=== PATIENT | female | born 1975 | race Caucasian/White ===

== ENCOUNTER → 2017-02-25 | Outpatient (CLI) | payer BC ==
--- NOTE | 2017-02-25 17:27 | RAD ---
DATE: 02/25/2017 EXAM: MAMMO TRICIA SCREENING BILATERAL HISTORY: Screening mammogram COMPARISON: October 14, 2013 bilateral mastoid mammogram. The breast parenchyma is heterogeneously dense, which could reduce sensitivity of mammography. Breast parenchyma level C. FINDINGS: Bilateral digital 2D and 3D tomosynthesis CC and MLO views. No suspicious mass, calcification or architectural distortion in either breast. IMPRESSION: No mammographic evidence to suggest malignancy. BI-RADS 1, negative. Recommend routine screening mammogram in 12 months. BI-RADS CATEGORY: 1 NEGATIVE RECOMMENDED FOLLOW-UP: 12M 12 MONTH FOLLOW-UP PQRS compliance statement: Patient information was entered into a reminder system with a target due date February 2018 for the next mammogram. Mammography is a sensitive method for finding small breast cancers, but it does not detect them all and is not a substitute for careful clinical examination. A negative mammogram does not negate a clinically suspicious finding and should not result in delay in biopsying a clinically suspicious abnormality. "Our facility is accredited by the [employer] Mammography [employer]."
== END | disposition home or self-care (01) ==
LOC: KCIC MAMMO 08:52
PROVIDERS: ATTEND Nurse Practitioner Family
DX: Z12.31 Encounter for screening mammogram for malignant neoplasm of breast (principal)
CPT/HCPCS: 77063; G0202; 77067

== ENCOUNTER → 2018-04-14 | Outpatient (CLI) | payer BC ==
--- NOTE | 2018-04-14 14:22 | KCIC ---
Bilateral digital screening mammograms with 3-D tomosynthesis: Reason for examination: Routine screening. Comparison is made to previous studies dated 02/25/2017 and 10/14/2013. Bilateral mammograms in CC and oblique projections were obtained with 2-D imaging and 3-D tomosynthesis imaging on a Siemens Inspiration unit and reviewed on the workstation. Interpretation was made with the benefit of CAD. The skin and nipples show no abnormalities. No abnormal axillary lymph nodes are seen. The breast parenchyma is heterogeneously dense. (Breast density: Category C.) There are circumscribed lesions seen bilaterally which likely represent cysts. This can be further evaluated with ultrasound. There are no suspicious calcifications or architectural distortion. Impression: Circumscribed lesions bilaterally. Recommend further evaluation with ultrasound. Your patient's mammogram demonstrates that she has dense breast tissue (breast density category C or D), which could hide abnormalities, and if she has other risk factors for breast cancer that have been identified, she might benefit from supplemental screening tests that may be suggested by you as her ordering physician. Dense breast tissue, in and of itself, is a relatively common condition. Therefore, this information is not provided to cause undue concern, but rather to raise your awareness and to promote discussion with your patient regarding the presence of other risk factors, in addition to dense breast tissue. Your patient's mammography results will be sent to her. BI-RAD Category 0: Incomplete. Needs additional imaging evaluation. "Our facility is accredited by the [employer] Mammography [employer]." This patient's information has been entered into a reminder system for the patient to be notified with the results of her examination and a target date for the next mammogram. Electronically signed by: Rupinder Williamson MD (04/14/2018 2:19 PM) [facility]
== END | disposition home or self-care (01) ==
LOC: KCIC MAMMO 10:00
PROVIDERS: ATTEND Nurse Practitioner Family
DX: Z12.31 Encounter for screening mammogram for malignant neoplasm of breast (principal); N64.89 Other specified disorders of breast
CPT/HCPCS: 77063; 77067

== ENCOUNTER → 2018-04-20 | Outpatient (CLI) | payer BC ==
--- NOTE | 2018-04-20 13:07 | KCIC ---
Bilateral breast ultrasound: Reason for examination: Nodular densities on screening mammogram. Comparison is made to mammographic exam dated 04/14/2018. Bilateral whole breast ultrasound including evaluation of all 4 quadrants and the retroareolar and axillary regions of both breasts was performed. The right breast shows presence of a 1.3 x 1.2 cm fibrocystic lesion at the 10:00 position 5 cm from the nipple. There is a 5.7 x 9.9 mm fibrocystic type lesion at the 10:00 position 2 cm from the nipple. There is a 4.8 x 5.9 mm fibrocystic lesion at the 10:00 position 3 cm from the nipple. No other cystic or solid lesions are seen. No abnormal appearing lymph nodes are seen in the right axilla. The left breast shows a 1.7 x 1.3 cm simple cyst at the 12:00 position 3.5 cm from the nipple. There is a 1.1 x 0.9 cm cyst in the 2:00 position 6 cm from the nipple. There is a 1.6 cm patch of fibrocystic change in the 3:30 position 4.5 cm from the nipple. There is a 1.1 cm hypoechoic fibrocystic type lesion in the 9:30 position 3.5 cm from the nipple. There is a 6.7 mm hypoechoic fibrocystic lesion at the 10:00 position 4 cm from the nipple. No suspicious appearing nodules are seen. No abnormal appearing lymph nodes are seen in left axilla. IMPRESSION: Benign-appearing cystic and fibrocystic type lesions are seen bilaterally. No gross suspicious lesions are seen. Recommend however reevaluation with ultrasound in 3 months. BI-RADS Category 3: Probably Benign. This patient's information has been entered into a reminder system for the patient to be notified with the results of her examination and a target date for the next mammogram. Electronically signed by: Rupinder Williamson MD (04/20/2018 1:04 PM) [facility]
== END | disposition home or self-care (01) ==
LOC: KCIC US 08:03
PROVIDERS: ATTEND Nurse Practitioner Family
DX: N63.11 Unspecified lump in the right breast, upper outer quadrant (principal); N63.21 Unspecified lump in the left breast, upper outer quadrant
CPT/HCPCS: 76641

== ENCOUNTER → 2018-07-21 | Outpatient (CLI) | payer BC ==
--- NOTE | 2018-07-21 09:48 | KCIC ---
Bilateral breast ultrasound: Reason for examination: Follow-up nodules. Comparison is made to previous study dated 04/20/2018. Bilateral whole breast ultrasound including evaluation of all 4 quadrants and the retroareolar and axillary regions of both breasts was performed. The right breast continues to show multiple small cystic and fibrocystic lesions. The fibrocystic lesion at the 10:00 position 2 cm from the nipple continue show some echogenic flecks which may reflect some calcifications but no calcifications are seen mammographically. The lesion however has decreased in size now measuring 6.7 mm in greatest dimension. The remaining cystic and fibrocystic lesions also show decrease in size. No abnormal appearing lymph nodes are seen in the axilla. The left breast also continues to show a 1.8 cm cyst at the 12:00 position 3.5 cm from the nipple and a 9.3 mm cyst at the 2:00 position 6 cm from the nipple. There also continue to be additional small cystic and fibrocystic lesions which are subcentimeter in size. No suspicious lesions are seen. No abnormal appearing lymph nodes are seen in the axilla. IMPRESSION: Continued presence of benign-appearing cystic and fibrocystic lesions bilaterally. Lesion in the right breast at the 10:00 position 2 cm from the nipple shows echogenic flecks suggesting calcifications. The overall size of the lesion however has decreased. Recommend continued 6 month follow-up. BI-RADS Category 3: Probably Benign. "Our facility is accredited by the [employer] Mammography Program." This patient's information has been entered into a reminder system for the patient to be notified with the results of her examination and a target date for the next mammogram. Electronically signed by: Rupinder Williamson MD (07/21/2018 9:44 AM) [place] [id number]
== END | disposition home or self-care (01) ==
LOC: KCIC US 07:47
PROVIDERS: ATTEND Nurse Practitioner Family
DX: R92.8 Other abnormal and inconclusive findings on diagnostic imaging of breast (principal); N63.11 Unspecified lump in the right breast, upper outer quadrant
CPT/HCPCS: 76641

== ENCOUNTER → 2019-01-19 | Outpatient (CLI) | payer BC ==
--- NOTE | 2019-01-19 09:11 | KCIC ---
Bilateral breast ultrasound: Reason for examination: Follow-up nodules. Comparison is made to previous studies dated 07/21/2018 and 04/20/2018. Ultrasound examination was performed bilaterally with attention to the areas of previous concern and the axilla. In the right breast, there has been resolution of the fibrocystic lesion at the 10:00 position 5 cm from the nipple. There continues to be a small 3.9 mm hypoechoic fibrocystic lesion at the 10:00 position 3 cm from the nipple which has decreased in size. There is continued presence however of a 5.4 mm hypoechoic lesion with echogenic flecks consistent with calcifications at the 10:00 position 2 cm from the nipple. This appears to show some irregularity to the margins and some vascularity. Further evaluation with ultrasound-guided biopsy is recommended. No abnormal appearing lymph nodes are seen in the axilla. In the left breast, there continues to be a 1.9 cm cystic lesion present at the 12:00 position 3.5 cm from the nipple. There continues to be a 1.1 cm cystic lesion at the 2:00 position 6 cm from the nipple which is unchanged. There is improvement in the fibrocystic lesion at the 3:00 B position 4.5 cm from the nipple. There continues to be a 8.7 mm hypoechoic lesion at the 9:30 position 3.5 cm from the nipple which shows a decrease in overall size. There continues to be a small lesion at the 10:00 position 4 cm from the nipple measuring 8.2 mm in size which shows an overall decrease in size from the original ultrasound exam. No new suspicious lesions are seen. No abnormal appearing lymph nodes are seen in the axilla. IMPRESSION: Continued presence of cystic and fibrocystic lesions bilaterally which show interval improvement. 5.4 mm hypoechoic lesion in the right breast at the 10:00 position 2 cm from the nipple which shows some irregularity to the margins and contains echogenic flecks consistent with calcifications . Further evaluation with ultrasound-guided biopsy is recommended. BI-RADS Category 4: Suspicious. These findings have been discussed with the patient and the patient's nurse practitioner was notified about these findings at 9:03 AM on 01/19/2019.. "Our facility is accredited by the [employer] Mammography Program." This patient's information has been entered into a reminder system for the patient to be notified with the results of her examination and a target date for the next mammogram. Electronically signed by: Rupinder Williamson MD (01/19/2019 9:08 AM) [facility]
== END | disposition home or self-care (01) ==
LOC: KCIC US 07:47
PROVIDERS: ATTEND Nurse Practitioner Family
DX: N64.89 Other specified disorders of breast (principal)
CPT/HCPCS: 76641

== ENCOUNTER → 2019-02-04 | Outpatient (CLI) | payer BC ==
--- NOTE | 2019-02-04 16:34 | RAD ---
Examination: DIGITAL DIAGNOSTIC RT, US GUID NDL PLACE/ASPI/BX History: Right breast mass 10:00 mass Comparison/Correlation: 01/19/2019 bilateral breast ultrasound exam Findings: Risks and benefits of ultrasound-guided core biopsy were discussed with patient and informed consent was obtained. Lateral approach was utilized. ChloraPrep was utilized for cleansing of the right breast. Sterile drapes were placed. Sterile gel and sterile probe cover were utilized. A total of 4.5 cc 1 percent lidocaine was administered under ultrasound guidance along the expected course of the needle track and medial to the mass of interest. Scalpel incision was made. An introducer was placed. A 14-gauge core biopsy needle was then placed into the mass. 4 passes were made with the bevel open. Specimens were placed in a formalin jar. Clip marker was then placed via the introducer into the right breast 10:00 mass. Patient tolerated the procedure well without immediate complications. Right MLO and CC images were then obtained for clip marker placement assessment. Clip marker is in place within the mass of interest at the upper outer aspect near the nipple. Impression: Successful biopsy of the right upper outer breast mass. Electronically signed by: Bradley Briones MD (02/04/2019 4:31 PM) [facility]
--- NOTE | 2019-02-09 16:06 | PATHOLOGY ---
[facility] Accession Number: [id number] . 01 Material submitted: . breast - RIGHT BREAST, 10:00, 2CMFN. Modifiers: right, 10:00 . 01 Clinical history: . Right breast mass 10:00 2 cmFN . 02 Diagnosis: Breast tissue, right breast mass 10:00 needle biopsies: - Sclerosing adenosis. - Fibrocystic changes with the following components: - Stromal fibrosis. - Duct ectasia. - Cystic change. - Apocrine metaplasia. - Chronic inflammation. (JPM:pit 02/08/2019) P/02/08/2019 . 02 Comment: Sections of the right breast mass at 10:00 needle biopsies show fibrocystic changes. There are foci of stromal fibrosis, duct ectasia, cystic change, apocrine metaplasia and chronic inflammation. In addition, there are crowded haphazardly arranged tubular structures infiltrating a fibrous stroma which on low power appear to maintain a lobular orientation. Immunoperoxidase stains for myoepithelial cells are obtained on A1 and A2 and yield the following results: . P63 (A1): Myoepithelial cells present within crowded tubular structures. Smooth muscle myosin heavy chain (A1): Myoepithelial cells present within crowded tubular structures. . P63 (A2): Myoepithelial cells present within crowded tubular structures. Smooth muscle myosin heavy chain (A2): Myoepithelial cells present within crowded tubular structures. . The morphologic and immunophenotypic findings are supportive of the diagnosis of sclerosing adenosis and fibrocystic changes. There is no evidence of malignancy. . (JPM:pit 02/08/2019) . Special stains performed: Immunoperoxidase for p63 on A1 and A2 and for smooth muscle myosin heavy chain on A1 and A2. . 02 Electronically signed: . Timothy Robbins MD, Pathologist NPI- [id number] . 01 Gross description: . The specimen is received in formalin, labeled "Elza Becerra, Rt breast 10:00 2 cmFN" and consists of 4 needle cores of pink-hernandez tissue measuring between 0.7 cm and 1.0 cm in length and 0.2 cm each in diameter. They are entirely submitted in A1-A2. The specimen was obtained at 3:15 PM on 02/04/2019 and placed in formalin at 3:24 PM. The cold ischemic time is greater than 72 hours. (SDY; 02/07/2019) SYU/SYU . 02 Pathologist provided ICD-10: N60.11, N60.31, N60.41, N60.81, N61.0 . 02 CPT . 235471, [id number], [id number] Specimen Comment: A courtesy copy of this report has been sent to Specimen Comment: [phone], . Specimen Comment: Report sent to / DR CEJA Performed at: 01 [facility] [address], [place] [id number] MD Swapnil Lopez MD Phone: [phone] Performed at: 02 [facility] [address], [place] [id number] MD Timothy Robbins MD Phone: [phone]
== END | disposition home or self-care (01) ==
LOC: US 15:25
PROVIDERS: ATTEND Nurse Practitioner Family
DX: N60.31 Fibrosclerosis of right breast (principal); N60.21 Fibroadenosis of right breast; N61.0 Mastitis without abscess
CPT/HCPCS: 19081; 19083; 76942; 77065

== ENCOUNTER → 2020-08-20 | Outpatient (CLI) | payer BC ==
--- NOTE | 2020-08-21 12:33 | RAD ---
EXAMINATION: MG BILAT SCREEN+TRICIA CLINICAL HISTORY: Screening mammogram TECHNIQUE: Digital craniocaudal and mediolateral oblique views of the bilateral breasts obtained with 3-D tomosynthesis. COMPARISON: 02/04/2019, 04/14/2018, 02/25/2017 BREAST COMPOSITION: The breasts are heterogeneously dense, which may obscure small masses. FINDINGS: No evidence of suspicious mass, calcifications, or areas of architectural distortion. Multiple circum scribed masses in the bilateral breasts, compatible with benign etiology and numerous cysts/fibrocyst ic changes on prior ultrasounds. Biopsy marker clip in the right upper inner quadrant remains in [place] position. IMPRESSION: No mammographic evidence of malignancy. BI-RADS ASSESSMENT: Category 2: Benign RECOMMENDATION: Return for routine bilateral screening mammogram in one year. PQRS compliance statement - Patient information was entered into a reminder system with a target due date for the next mammogram. "Our facility is accredited by the [employer] Mammography [employer]." Electronically signed by: Doyle Cortez DO (08/21/2020 12:30 PM) [email or web address]
== END ==
LOC: MAMMO 15:37
PROVIDERS: ATTEND Nurse Practitioner Family
DX: Z12.31 Encounter for screening mammogram for malignant neoplasm of breast (principal)
CPT/HCPCS: 77063; 77067